=== PATIENT | female | born 1950 | race Caucasian/White ===

== ENCOUNTER 2017-10-05 15:04 | Inpatient (IN) | payer OTHER ==
[~2017-10-05] VITALS: Ht 162.6 cm; Wt 81.6 kg
[2017-10-27] MEDS ORDERED: NORVASC5 MG PO (12:00)
[2017-10-27] MEDS ORDERED: AVAPRO300 MG PO (12:00)
[2017-10-27] MEDS ORDERED: AMBIEN10 MG PO (12:01)
[2017-10-27] MEDS ORDERED: PROSCAR5 MG PO (12:01)
== END 2017-11-05 20:32 | DRG 470 ==
LOC: O/R 11-03 07:00 → SURG 11-03 07:00 → SURH 11-03 07:00 → SURG 11-03 10:15 → SURH 11-03 13:45
PROVIDERS: Orthopaedic Surgery
PROC: 0SRC0J9 Replacement of Right Knee Joint with Synthetic Substitute, Cemented, Open Approach (ICD-10-PCS; principal; 2017-11-03 07:00)
DX: M17.11 Unilateral primary osteoarthritis, right knee (principal); M85.461 Solitary bone cyst, right tibia and fibula; I10 Essential (primary) hypertension; G47.33 Obstructive sleep apnea (adult) (pediatric); J45.909 Unspecified asthma, uncomplicated